=== PATIENT | male | born 1960 | race Caucasian/White ===

== ENCOUNTER 2016-11-01 09:31 | Day surgery (SDC) | payer OTHER ==
[~2016-11-01] VITALS: Ht 172.7 cm; Wt 84.4 kg
[2016-11-01] VITALS (14 sets, daily range): BP systolic 124–145; BP diastolic 75–89; PULSE 64–106; RESP 11–16; O2SAT 94–98
--- NOTE | 2016-11-01 06:37 | PCM.HPANE ---
Patient Data Surgeon Admitting Provider: Attending Provider:Millicent Lopez MD Primary Care Physician:Warner Saucedo MD Other Provider:Diane Pelaez Anesthesia Reason for Visit Right Kidney Stone Ht/WT & BMI Height (Feet): 5 Height (Inches): 8 Weight (Kilograms): 84.368 Body Mass Index 28.00 Allergies Coded Allergies: shellfish derived (Verified Allergy, Unknown, UNKNOWN, 10/31/16) codeine (Verified Adverse Reaction, Severe, N/V, 10/31/16) Past Anesthesia History Anesthesia History: Denies:: Anesthesia Reactions, Malignant Hyperthermia Diabetes History Hx Diabetes?: No MRSA MRSA: No Medications Hypertension Medication: No Reported Medications Tamsulosin (Flomax)0.4 Mg Capsule0.4 Mg PO DAILY Ref 0 10/31/16 Meperidine (Demerol)100 Mg [id number] Mg PO Q6H PRN Pain Ref 0 10/31/16 Ranitidine (Zantac)150 Mg [id number] Mg PO BID 10/31/16 Ondansetron (Zofran)4 Mg Tablet4 Mg PO Q6H PRN For Nausea 10/31/16 Discontinued Reported Medications Ketorolac Tromethamine 10 Mg [id number] Mg PO TID PRN For Pain 30 Days 07/27/14 Potassium Citrate ER 5 Meq Tablet.erUnknown Dose PO QID 30 Days Ref 0 TAKE WITH FOOD 07/27/14 Hydrocodone-Acetaminophen 5-325 mg 1 Each Tablet1 Each PO Q4 PRN For Pain Ref 0 07/27/14 Ondansetron (Zofran)8 Mg Tab8 Mg PO 07/26/14 Tamsulosin (Flomax)0.4 Mg Capsule0.4 Mg PO DAILY 30 Days Ref 0 07/26/14 History History of ENT Problems?: No HEENT History: Positive for:: Cataracts Dysphagia Glaucoma Hearing Problem Sinus Problem TMJ Denies:: Abnormal Airway Difficult Intubation Denture Type: None Teeth Condition: Within Normal Limits Other HEENT Pertinent History: S/P EXC PAROTID MASS Hx of Heart Problems?: Yes Cardiovascular History: Positive for:: Hypertension Denies:: Irregular Heartbeat Hx of Respiratory Problem?: No Respiratory History: Denies:: Use of C-PAP Machine Hx Neurologic Problems?: Yes Neurological History: Positive for:: Parkinson's Disease (NOTED ON OLD RECORD- ON NO MEDS) Hx of GI Problems?: Yes Other GI Pertinent History: S/P APPY Hx of Problems?: Yes Genitourinary History: Positive for:: Kidney Stones (HX OF PRIOR STONES RT KIDNEY STONE=CURRENT PROBLEM ) Other Pertinent History: C/OF HEMATURIA,NOCTURIA,ABD/FLANK PAIN HX BLADDER CA,B/L KIDNEY STONES CURRENTLY S/P TURBT,CYSTO/LITHOTRIPSY X3 Male Hx: Denies:: Prostate Problems Scrotal Mass Testicular Surgery Skin History: Denies:: History Skin Disorders? Pressure Ulcers Hx Musculoskeletal Problems?: No Hx of Psycho/Social Problems?: Yes Psycho Social History: Positive for:: Hx Depression Hx Surgeries?: Yes (RT PAROTIDECTOMY,TURBT,CYSTO/LITHOTRIPSY X3,APPY) Hx Any Other Health Problems?: Yes Other History: Positive for:: Cancer (BLADDER) Denies:: Endocrine Disease Hospitalization Thyroid Disease History Blood Transfusions: Denies:: Blood Transfusions Hx Diabetes: No Hx Alcohol Use: NoHx Substance Use: No Smoking Status: Never Smoker Unknown if Ever Smoker Have You Smoked inLast 12 mo: No Stop/Bang S-Snoring: Do You Snore Loudly: No T-Tired: feel tired, fatigued: Yes O-Obsered: Observed not breath: No P-Blood Pressure: treated: Yes B- Body Mass Index > 35 kg/m2: No A- Age over 50: Yes N- Neck Large Circumference: No G- Gender Male: Yes ARLEN Total Score: 4 ARLEN Risk Assessment: High Risk, =/>3 Yes ARLEN Category 4 OutPt Procedure: Yes Risk Assessment Category Category 1A: Patient has history of documented sleep apnea, and HAS NOT received any narcotic, sedative or anesthesia administration during this stay. Category 1B: Patient has history of documented sleep apnea, and HAS received any narcotic , sedative or anesthesia administration during this stay Category 2: Patient has SUSPECTED Obstructive Sleep Apnea, and HAS received any narcotic , sedative or anesthesia administration during this stay. Category 3: Patient has SUSPECTED Obstructive Sleep Apnea and HAS NOT received narcotic, sedative or anesthesia administration during this stay. Category 4: Outpatient in Procedural Areas with known sleep apnea or who screen positive for High Risk via the STOP/BANG questionnaire. Exam Exam General Appearance: Alert, Oriented X3, Cooperative, No Acute Distress HEENT/AIRWAY: MP 2 Lungs: Clear to Auscultation, Normal Air Movement Heart: Exam Unremarkable, Regular Rate/Rhythm, No Murmurs/Rubs/Gallops Plan Impression Patient chart reviewed, patient interviewed and anesthestic plan with risks, benefits, and alternatives discussed, and informed consent obtained. NPO per Anesth. Guidelines: Yes ASA Physical Status: ASA2 Mod Systemic Disease Anesthetic Plan: GA Bene/Risks/Altern/Consents: Yes HP Complete Prior to Induction: Yes Abigail Belle MD Nov 01, 2016 06:37
[~2016-11-01 09:31] MED LIST: MEPE100T17 PO; ONDA4TAB6 PO; RANI150T11 PO; TAMS0.4C98 PO
[2016-11-01] MEDS ORDERED: fentaNYL-PF 50 mCg/mL 2 mL Inj ONE (09:32)
[2016-11-01] MEDS ORDERED: Propofol 10,000 mCg/mL 20 mL Inj ONE (09:32)
[2016-11-01] MEDS ORDERED: Ondansetron 2 mg/mL 2 mL Inj ONE (09:32)
[2016-11-01] MEDS ORDERED: Dexamethasone 4 mg/mL Inj ONE (09:32)
[2016-11-01] MEDS ORDERED: CeFAZolin Inj 2 gm / 50mL D5W IV ONE (10:02)
[2016-11-01] MEDS ORDERED: Belladonna Alk-Opium 60 mg Rectal Suppository RECTAL ONE (10:20)
[2016-11-01] MEDS ORDERED: Lactated Ringer's 1,000 ML IV ONE (10:21)
[2016-11-01] MEDS ORDERED: Lactated Ringer's 500 ML IV PRN (10:32)
[2016-11-01] MEDS ORDERED: Lactated Ringer's 1,000 ML IV SCH (10:32)
[2016-11-01] MEDS ORDERED: Atropine 0.4 mg/mL Inj IVPUSH PRN (10:35)
[2016-11-01] MEDS ORDERED: Phenylephrine 10,000 mCg/mL Inj IVPUSH PRN (10:35)
[2016-11-01] MEDS ORDERED: EPHEDrine Sulfate 50 mg/mL Inj IVPUSH PRN (10:35)
[2016-11-01] MEDS ORDERED: MetoCLOpramide 5 mg/mL 2 mL Inj IVPUSH PRN (10:35)
[2016-11-01] MEDS ORDERED: Labetalol 5 mg/mL 4 mL Inj IV PRN (10:35)
[2016-11-01] MEDS ORDERED: Dexamethasone 4 mg/mL Inj IVPUSH PRN (10:35)
[2016-11-01] MEDS ORDERED: Ondansetron 2 mg/mL 2 mL Inj IVPUSH PRN (10:35)
[2016-11-01] MEDS ORDERED: HYDROmorphone 1 mg/mL Inj IVPUSH PRN (10:35)
[2016-11-01] MEDS ORDERED: oxyCODONE-Acetamin 5-325 mg Tablet PO PRN (11:15)
--- NOTE | 2016-11-01 11:19 | PCM.ANEP1 ---
Post Anesthesia PACU Phase 1 Assessment Vital Signs Vital Signs Date Time Temp Pulse Resp B/P Pulse Ox O2 Delivery O2 Flow Rate FiO2 11/01/16 11:15 102 12 130/89 98 Simple Mask 8 11/01/16 11:13 36.1 106 13 137/89 98 Simple Mask 8 11/01/16 09:59 36.4 68 14 135/82 98 Room Air Anesthetic Administered: GA Level of Alertness: Awake, talking BETHEA's with Equal Strength: Yes Pain: No Nausea or Vomiting: No CV Function & Hydration Stable: Yes Airway Device: Oxygen Delivery: Simple Mask Lungs: Clear to Auscultation, Normal Air Movement PACU Phase 2 Assessment Complications: No Follow up Care: No Patient Instructions Provided: N/A Abigail Belle MD Nov 01, 2016 11:19
[2016-11-01] MEDS ORDERED: HYDROmorphone 0.5 mg/0.5 mL iSecure Syringe ONE (11:28)
[2016-11-01] MEDS: fentaNYL-PF 50 mCg/mL 2 mL Inj IVPUSH PRN ×2 (11:43→11:49)
[2016-11-01] MEDS ORDERED: Belladonna Alk-Opium 60 mg Rectal Suppository RECTAL SCH (20:30)
--- NOTE | 2016-11-01 20:52 | OP ---
[address] [address] OPERATIVE REPORT PATIENT: GINA SCHNEIDER : 1960 MR#: [id number] ADMIT: 11/01/2016 JOB ID: [id number] DATE OF SURGERY: 11/01/2016 SURGEON: Millicent Lopez MD PREOPERATIVE DIAGNOSIS(ES): Right renal calculus. POSTOPERATIVE DIAGNOSIS(ES): Right renal calculus. PROCEDURES: 1. Cystoscopy. 2. Ureteroscopy. 3. Laser lithotripsy. 4. Stone basketing. 5. Insertion of stent. ANESTHESIA: General anesthetic, Dr. . PROCEDURE IN DETAIL: Under general anesthetic, the patient was placed in lithotomy position. Genitalia prepped and draped in a sterile manner. The urethra was dilated to 26-Monegasque with Mary sounds. A 22-Monegasque cystoscope was introduced through a normal urethra. Ureteral orifices were normal position and appearance. A 0.035 Glidewire was advanced to the level of the right renal pelvis. Over the Glidewire, a balloon dilation catheter was passed and the distal ureter dilated to 15-Monegasque. A semi-rigid ureteroscope was advanced to the mid ureter. No stone could be visualized. A 14-Monegasque access sheath was then advanced over the wire without difficulty up to the ureteropelvic junction. A flexible ureteroscope was then advanced through the access sheath, and the stone identified in the renal pelvis, yellow and crystalline in structure. Using the holmium laser at low settings, the stone was easily fragmented. A nitinol NGage basket was then used to retrieve two small fragments of the stone for analysis. The remaining fragments were all less than 0.5 mm and were left in place. Glidewire was then introduced back through the access sheath. Over the Glidewire, a 6-Monegasque 24 cm double-J stent was passed. When the stent was confirmed to be in good position fluoroscopically, the wire was withdrawn. A B and O suppository was given for postoperative analgesia. The patient tolerated the procedure well and left the operating room in good condition.
[2016-11-12 09:12] LABS: Stone Color Tan (.)
== END 2016-11-01 23:59 | disposition home or self-care (01) ==
LOC: SAS 09:31
PROVIDERS: ATTEND Urology
DX: N20.0 Calculus of kidney (principal); I10 Essential (primary) hypertension
CPT/HCPCS: 52356; 76000; 82360; C2617; J0690; J1100; J1170; J1885; J2175; J2250; J2405; J3010; J7120